=== PATIENT | female | born 1985 | race Caucasian/White ===

== ENCOUNTER 2017-04-24 22:50 | Emergency (ER) | payer OTHER ==
[~2017-04-24 22:50] MED LIST: ALESSE-281 TAB; ASPIRIN PO; ATIVAN PO; ATIVAN0.5 MG PO; CELEXA PO; DARVOCET-N 1001 TAB PO; DICLOFENAC PO; HYDROCODON-ACE1 EACH PO; IMITREX; LEXAPRO PO; LOMOTIL TABLET1 TAB PO; MAXALT MLT10 MG/TAB PO; METOPROLOL PO; METOPROLOL SUCC25 MG PO; MIDRIN CAPSULE1 CA1 PO; NO MEDICATIONS; PHENERGAN PO; PHENERGAN PR; PHENERGAN25 MG PO; PHENTERMINE H37.5 M1 PO; PRENATAL MULITV1 TAB PO; PRESTIGE; PRISTIQ50 MG PO; TOPAMAX25 MG PO; VALTREX PO; VOLTAREN75 MG PO
[2017-04-24 23:31] LABS: INFLUENZA A NEG (NEG); INFLUENZA B NEG (NEG)
== END 2017-04-25 00:10 | disposition home or self-care (01) ==
LOC: SED 22:50
PROVIDERS: Physician Assistant
DX: J02.0 Streptococcal pharyngitis (principal); Z88.8 Allergy status to other drugs, medicaments and biological substances; Z79.899 Other long term (current) drug therapy
CPT/HCPCS: 87804; 87880; 96372; 99283; J0561

== ENCOUNTER 2017-05-10 22:50 | Emergency (ER) | payer OTHER ==
--- NOTE | ~2017-05-10 | CR63 ---
[facility] A Service of [facility] RADIOLOGY TEXT RESULTS PATIENT: CARRIE BURRELL LOCATION: SED : 89 UNIT #: [id number] AGE: [address]: IRVIN OROZCO SEX: F ORDER DR: [id number] [place] [id number] E MR#: [id number] Acc #: [id number] NAME: CARRIE BURRELL : 1985 SEX: F STUDY DATE/TIME: 05/11/2017 0:37 UNIT: SED ROOM: STUDY DESCRIPTION: CR Chest 2 View Attending Physician: Irvin Orozco Ordering Physician: Physician Non-Staff Primary Care Physician: Finesse Butler M.D. MEDICAL IMAGING REPORT This report is preliminary unless electronic signature is present. EXAM Two-view chest INDICATION Left-sided chest pain. FINDINGS PA and lateral views of the chest compared to 07/12/2012. The heart and mediastinal contours are normal. Lungs are clear. No pleural effusion. IMPRESSION Negative chest radiograph. Dictated by... Romeo Douglas M.D. THIS IS AN ELECTRONICALLY VERIFIED REPORT Romeo Douglas M.D. at 05/14/2017 2:13 PM CHERYL/bj TD: 05/11/2017 07:04 JOB #: [id number] MEDICAL IMAGING REPORT Page 1 of 1
[2017-05-11 00:32] LABS: URINE SOURCE CLEAN CATCH
[2017-05-11 00:35] LABS: URINE APPEARANCE SL CLOUDY; URINE BILIRUBIN NEG (NEG); URINE BLOOD NEG (NEG); URINE COLOR YELLOW; URINE GLUCOSE NEG (NORM); URINE KETONE TRACE (NEG); URINE LEUKOCYTE ESTERASE NEG (NEG); URINE NITRATE NEG (NEG); URINE PROTEIN NEG (NEG)
[2017-05-11 00:36] LABS: MICRO INDICATED? NO
[2017-05-11 00:37] LABS: BASOPHIL% 0.3 % (0-2.5); EOSINOPHIL# 0.1 X10e3 (0-0.7); EOSINOPHIL% 0.9 % (0.0-7.0); HEMATOCRIT 38.9 % (35.0-45.0); LYMPHOCYTE# 2.2 X10e3 (1.0-3.5); LYMPHOCYTE% 27.5 % (17.0-45.0); MEAN CELL VOLUME 86.3 FL (83-96); MEAN CORPUSCULAR HEMOGLOBIN 28.8 PG (28-34); MEAN CORPUSCULAR HGB CONC 33.4 g/dL (30-36); MEAN PLATELET VOLUME 8.9 FL (6.5-11.5); MONOCYTE# 0.6 X10e3 (0-1.0); MONOCYTE% 7.5 % (3.0-12.0); NEUTROPHIL# 5.2 X10e3 (1.5-7.1); NEUTROPHIL% 63.8 % (40-75); PLATELET COUNT 162 X10e3 (140-420); RED BLOOD COUNT 4.51 X10e (3.90-5.30); RED CELL DISTRIBUTION WIDTH 13.1 % (11.0-15.5); WHITE BLOOD COUNT 8.1 X10e3 (4.0-10.5)
[2017-05-11 00:38] LABS: DIFF IND NO
[2017-05-11 00:52] LABS: ALBUMIN SERUM 4.3 g/dL (3.5-5.0); BILIRUBIN,TOTAL 0.3 mg/dL (0.2-2.0); BUN/CREATININE RATIO 18.57; CALCIUM SERUM 9.3 mg/dL (8.4-10.2); CREATININE SERUM 0.7 mg/dL (0.6-1.4); GLOM FILT RATE Estimated 116.3 mL/min (>60); POTASSIUM 3.3 mmol/L (3.5-5.1); PROTEIN TOTAL SERUM 7.6 g/dL (6.0-8.3)
== END 2017-05-11 01:25 | disposition home or self-care (01) ==
LOC: SED 22:50
PROVIDERS: Nurse Practitioner
DX: S20.212A Contusion of left front wall of thorax, initial encounter (principal); F41.9 Anxiety disorder, unspecified; F32.9 Major depressive disorder, single episode, unspecified; G43.909 Migraine, unspecified, not intractable, without status migrainosus; Z79.899 Other long term (current) drug therapy; Z88.8 Allergy status to other drugs, medicaments and biological substances; Z86.79 Personal history of other diseases of the circulatory system; X58.XXXA Exposure to other specified factors, initial encounter; Y92.009 Unspecified place in unspecified non-institutional (private) residence as the place of occurrence of the external cause
CPT/HCPCS: 36415; 71020; 80053; 81003; 84703; 85025; 86308; 96374; 99285; J1885